=== PATIENT | female | born 1995 | race Caucasian/White ===

== ENCOUNTER 2024-05-15 12:07 | Outpatient (CLI) | payer BC, SELFPAY ==
--- NOTE | 2024-05-15 12:15 | CRLHL7_ITS ---
For Patients: As a result of the Cures Act, medical imaging exams and procedure reports are released immediately into your electronic medical record. You may view this report before your referring provider. If you have questions, please contact your health care provider. OBSTETRICAL ULTRASOUND INDICATION: Unsure dates. LMP: Unsure PREVIOUS ULTRASOUND: No TECHNIQUE: Transvaginal pelvic ultrasound. FINDINGS: CRL: 3.3 cm, 10 weeks 1 day; NIYA 12/10/2024 heart rate: 169 BPM Gestational sac: 3.3 cm Yolk sac: Not visualized Right ovary: Within normal limits; 4.0 x 2.2 x 2.4 cm Left ovary: Not visualized IMPRESSION: 1. Single viable intrauterine measuring 10 weeks 1 day. 2. 1.6-cm subchorionic hemorrhage along the inferior gestational sac. MAGI BAXTER M.D. Body/Diagnostic Radiologist [email or web address] Transcribed: 5:[address]/Dictated by: Magi Baxter MD @ 05/16/2024 4:15:00 PM (Electronically Signed)
== END 2024-05-15 12:08 | disposition home or self-care (01) ==
LOC: US 12:09
PROVIDERS: Visit Provider Physician Assistant
DX: Z34.90 Encounter for supervision of normal pregnancy, unspecified, unspecified trimester (principal); Z34.91 Encounter for supervision of normal pregnancy, unspecified, first trimester; O20.9 Hemorrhage in early pregnancy, unspecified; Z3A.10 10 weeks gestation of pregnancy
CPT/HCPCS: 76817; 84443; 86703; 86706; 86803; 86850; 86900; 86901; 87086; 87340; 87491; 87591

== ENCOUNTER 2024-05-15 13:25 | Outpatient (CLI) | payer BC, SELFPAY ==
[2024-05-15 18:00] LABS: Chlamydia DNA Amplified* NOT DETECTED (No Detected); GC DNA Amplified* NOT DETECTED (No Detected)
== END 2024-05-15 13:26 | disposition home or self-care (01) ==
PROVIDERS: Visit Provider Physician Assistant
DX: Z34.91 Encounter for supervision of normal pregnancy, unspecified, first trimester (principal); Z3A.10 10 weeks gestation of pregnancy
CPT/HCPCS: 84443; 86592; 86703; 86704; 86706; 86762; 86787; 86803; 86850; 86900; 86901; 87086; 87340; 87491; 87591

== ENCOUNTER 2024-07-03 09:19 | Emergency (ER) | payer BC, SELFPAY ==
[2024-07-03 09:32] VITALS: BP 129/86; PULSE 94; RESP 18; TEMP 37.1; O2SAT 100; BMI 46.2
--- NOTE | 2024-07-03 10:08 | ED_ITS ---
HPI - General Adult General Date Seen: 07/03/24 Chief complaint: Allergic Reaction Stated complaint: allergic reaction Time Seen by Provider: 07/03/24 10:07 History of Present Illness HPI narrative: 28-year-old female who is currently 17 weeks , with a history of elevated BMI, PCOS, who presents to the ER today with concern for allergic reaction. Per medical record she had a check in April had about 10 weeks . E.d. see 12/10/2024. She has been doing well with her . No recent vaginal bleeding or cramping or any concerns. She got a new facial cleanser that she started using 3 days ago on Wednesday. It was an organic facial cleanser. Beginning the following day and today she started to have some itchy redness on her face including her forehead, cheeks and anterior neck. The itchiness got a little bit worse yesterday on Wednesday. She stop using the facial cleanser, suspecting she was allergic to it. This morning her face was even more red and itchy. She felt a little bit of shortness of breath so she called the nurse triage line was told to come here to the ER. She did not miss any change in her voice. No chest pain or tightness. No nausea vomiting or abdominal pain no hives other than on her face and neck where she had applied cleanser. She has a history of similar contact dermatitis in the past. She says she did not have any change her voice and she is not sure if she was really short of [place] ath or she was just anxious about the rash but was told to come here to the ER. Related Data Previous Rx's ?Medication ?Instructions ?Recorded vitamins no.148-iron 27 1 cap PO DAILY #90 caps 05/15/24 mg-folate 1 mg-dha 205 mg capsule cetirizine 10 mg tablet 10 mg PO DAILY PRN allergy 07/03/24 symptoms #7 tabs prednisone 20 mg tablet 60 mg (3 x 20 mg) PO DAILY #9 tabs 07/03/24 Allergies Allergy/AdvReac Type Severity Reaction Status Date / Time No Known Drug Allergies Allergy Verified 07/03/24 09:39 PFSH PFSH Family History (Updated 05/15/24 @ 12:09 by Dyana Jacob PA-C) Maternal Grandmother Lymphoma Aunt Breast cancer Paternal Grandfather Heart disease Social History (Updated 05/15/24 @ 13:54 by Dyana Jacob PA-C) Narrative: Occupation: Massage therapist. Marital status: . Jewish/cultural needs: no. Chemical or radiation exposure: no. Pre- tobacco use: no. Pre- alcohol use: no. Current tobacco use: no. Current alcohol use: no. Recreational drug use: no. Dietary restrictions: no. Blood transfusion acceptable in an emergency: yes. PSYCHOSOCIAL HISTORY: History of depression or currently depressed: Denies. Current or past physical, emotional, or sexual mistreatment: Denies. Problems that will make it hard to make it to appointments: No. What is your current living situation?: I presently have a place to live Problems where you live: pests, such as bugs, ants, or mice and no known problems In the past 12 months, utilities in danger of being shut off: no In the past 12 mos, have been you worried that your food would run out before you had money to buy more?: never true In the past 12 mos, the food you bought just didn't last and you didn't have money to buy more?: never true How often does anyone, including family, friends and others, physically hurt you : never How often does anyone, including family, friends and others, insult or talk down to you: rarely How often does anyone, including family, friends and others, threaten you with harm: never How often does anyone, including family, friends and others, scream or curse at you: never Health Related Social Needs: Inadequate housing (Z59.1) and Other personal risk factors, not elsewhere classified (Z91.89) Exam Narrative: Exam Narrative: Constitutional: Appears well-developed and well-nourished. Alert. Conversant. Non toxic. HENT: Head: Atraumatic. Nose: Nose normal. Mouth/Throat: Oral mucosa is clear and moist. no trismus. Pharynx normal. Tonsils symmetric. No tonsillar enlargement, erythema, or exudate. Eyes: Conjunctivae normal. EOM normal. Pupils equal, round, and reactive to light. No scleral icterus. Neck: Normal range of motion. Neck supple. No tracheal deviation present. Cardiovascular: Normal rate, regular rhythm. No gallop. No friction rub. No murmur heard. Symmetric radial artery pulses Pulmonary/Chest: Effort normal. No stridor. No respiratory distress. No wheezes. No rales. No rhonchi Musculoskeletal: RUE: Normal range of motion. No tenderness. No deformity LUE: Normal range of motion. No tenderness. No deformity RLE: Normal range of motion. No edema. No tenderness. No deformity LLE: Normal range of motion. No edema. No tenderness. No deformity Lymph: No cervical adenopathy. Neurological: Alert and oriented to person, place, and time. Normal strength. CN II-VII intact. No sensory deficit. GCS eye subscore is 4. GCS verbal subscore is 5. GCS motor subscore is 6. Normal coordination Skin: She has an erythematous pruritic rash affecting her face including diffusely on her forehead, cheeks, lower eyelids and a more scattered erythematous pruritic appearing rash on her anterior neck and anterior chest just down to the clavicles. She has a couple of small urticarial lesions on the back of her neck behind her left ear. None behind right ear. No other hives or rash. No pallor. Normal capillary refill. Psychiatric: Normal mood. Normal affect. Const: Vital Signs, click to edit/add: Vital Signs - 24 hr 07/03/24 09:32 Temperature 98.7 F Pulse Rate [Pulse Oximeter] 94 Respiratory Rate 18 Blood Pressure [Ri ght Upper Arm] 129/86 Pulse Oximetry 100 Oxygen Delivery Me thod Room Air Course Vital Signs Vital signs: Initial Vital Signs Temperature 98.7 F 07/03/24 09:32 Temperature Source Temporal Artery Scan 07/03/24 09:32 Pulse Rate 94 07/03/24 09:32 Respiratory Rate 18 07/03/24 09:32 Blood Pressure 129/86 07/03/24 09:32 Blood Pressure Mean 100 07/03/24 09:32 Blood Pressure Position Sitting 07/03/24 09:32 Pulse Oximetry 100 07/03/24 09:32 Oxygen Delivery Method Room Air 07/03/24 09:32 Vital Signs Temperature 98.7 F 07/03/24 09:32 Pulse Rate 94 07/03/24 09:32 Respiratory Rate 18 07/03/24 09:32 Blood Pressure 129/86 07/03/24 09:32 Pulse Oximetry 100 07/03/24 09:32 Oxygen Delivery Method Room Air 07/03/24 09:32 Temperature 98.7 F 07/03/24 09:32 Pulse Rate 94 07/03/24 09:32 Respiratory Rate 18 07/03/24 09:32 Blood Pressure 129/86 07/03/24 09:32 Pulse Oximetry 100 07/03/24 09:32 Oxygen Delivery Method Room Air 07/03/24 09:32 Medications Administered Medications: Discontinued Medications Generic Name Dose Route Start Last Admin Trade Name Girish PRN Reason Stop Dose Admin Cetirizine HCl 10 mg 07/04/24 09:00 07/03/24 10:34 Cetirizine Hcl 10 Mg Tablet PO 10 mg DAILY JORDYN Administration Prednisone 60 mg 07/03/24 10:26 07/03/24 10:34 Prednisone 20 Mg Tablet PO 07/03/24 10:27 60 mg ONCE ONE Administration Medical Decision Making MDM Narrative Medical decision making narrative: This patient presents for evaluation of a red itchy rash affecting her face and anterior neck. Signs and symptoms are consistent with allergic reaction, likely a contact dermatitis to her new facial cleanser. There was some concern based on her conversation with the phone triage nurse that she may be having some shortness of breath but at this point on my exam she has no signs of airway involvement, bronchospasm. She is not having any GI symptoms, hypotension, or other sign of anaphylaxis. Patient was treated here with medications as noted above.. Will send home with steroids, antihistamines. Potential for progression reaction was discussed. At this point epinephrine is not indicated and would be relatively contraindicated by her . However if symptoms progress, epi would certainly be needed. Potential for anaphylacticc symptoms were discussed with patient and they were instructed to inject epi-pen and call 911 should these symptoms occur. Given the stability of her rash being present for the past couple of days lack of serious systemic symptoms, lack of respiratory difficulty and no oral or pharyngeal swelling, would not admit at this time for anaphylaxis. There is no signs of anaphylactic shock. Discharge Plan Discharge Clinical Impression: Contact dermatitis Patient Disposition: Home, Self-Care Condition: Stable Instructions: Contact Dermatitis (DC) Additional Instructions: As we discussed, use prednisone once daily for the next 3 days and cetirizine once daily for the next 3-5 days as needed. If you are having itchiness uncontrolled by cetirizine, you can add Benadryl 25 mg every 6 hours as needed Return to the ER immediately if you develop worsening trouble breathing, change in your voice, P throat swelling, trouble swallowing, or if you have any worsening rash or other concerns. Prescriptions: New prednisone 20 mg tablet 60 mg PO DAILY Qty: 9 0RF cetirizine 10 mg tablet 10 mg PO DAILY PRN (Reason: allergy symptoms) Qty: 7 0RF No Action [id number] 6-dha 27 mg iron-1 mg -205 mg capsule 1 cap PO DAILY Qty: 90 3RF Follow Up/Referrals: Provider,Not a Local [Primary Care Provider] - Stand Alone Forms: [facility] Info Instructions
[2024-07-03] MEDS: predniSONE 20 MG TABLET 60 MG PO (10:34)
[2024-07-03] MEDS: CETIRIZINE HCL 10 MG TABLET PO (10:34)
== END 2024-07-03 10:48 | disposition home or self-care (01) ==
LOC: ED 10:41
PROVIDERS: Emergency Provider Emergency Medicine
DX: L23.9 Allergic contact dermatitis, unspecified cause (principal); Z3A.17 17 weeks gestation of pregnancy
CPT/HCPCS: 99282; 99283; A9270; J7512

== ENCOUNTER 2024-07-12 08:22 | Outpatient (CLI) | payer BC, SELFPAY | END 2024-07-12 08:23 | disposition home or self-care (01) | LOC: US 08:26 | PROVIDERS: Visit Provider Advanced Practice Midwife | DX: Z34.92 Encounter for supervision of normal pregnancy, unspecified, second trimester (principal); Z3A.18 18 weeks gestation of pregnancy | CPT/HCPCS: 76811 ==

== ENCOUNTER 2024-12-01 18:08 | Outpatient (CLI) | payer BC, SELFPAY ==
[2024-12-01 18:42] LABS: Clue Cells No Clue Cells Seen (None Seen); Trichomonas No Trichomonas Seen (None Seen); Yeast No Yeast Seen (None Seen)
[2024-12-01 18:46] LABS: Amnisure Rom* Negative
[2024-12-01 19:32] LABS: Appearance Urine Clear (Clear); Bilirubin Urine Negative (Negative); Blood Urine Negative (Negative); Color Urine Yellow (Yellow); Glucose Urine Negative (Negative); Ketones Urine 2+ (Negative); Leukocyte Esterase Urine Negative (Negative); Nitrite Urine Negative (Negative); Protein Urine Negative (Negative); Urobilinogen Urine 0.2 (0.2-1.0); pH Urine 6.5 (5.0-8.5)
[2024-12-01 21:29] VITALS: PULSE 140; O2SAT 81
[2024-12-01 21:30] VITALS: BP 118/74; PULSE 107; PULSE 117; O2SAT 97
--- NOTE | 2024-12-01 21:59 | PC.OBNST ---
NST Note NST Note Start: 12/01/24 17:11 Freq: ONCE Status: Active Protocol: Document 12/01/24 21:56 OANH (Rec: 12/01/24 21:59 OANH Desktop) NST Note 2 Para (# of births) 1 EDC 12/10/24 Gestational Age In Weeks & Days 38 Weeks & 5 Days Patient Presented with Complaint(s) of Leaking fluid,Decreased movement,Other Other Complaints trauma- fell on her hands and knees, hit abdomen Reactive Yes Appropriate for Gestational Age Yes ADONIS Amaya RN Date 12/01/24 Reactive Yes Appropriate for Gestational Age Yes ADONIS Moise Date 12/01/24 OB NST charge Yes Complete NST Note via Write Note Yes The provider's electronic signature indicates the NST is reactive/appropriate for gestational age. *Note to provider: If an addendum is required, open the patient's chart and click on the note under the Nurse/Allied Health tab.
== END 2024-12-01 21:50 | disposition home or self-care (01) ==
LOC: OB OUT 18:09 → OB 18:25
PROVIDERS: PCP Family Medicine; Visit Provider Family Medicine
DX: O47.1 False labor at or after 37 completed weeks of gestation (principal); O36.8130 Decreased fetal movements, third trimester, not applicable or unspecified; Z3A.38 38 weeks gestation of pregnancy
CPT/HCPCS: 36415; 59025; 81003; 84112; 85461; 87210; G0463; J2791

== ENCOUNTER 2024-12-05 17:02 | Inpatient (IN) | payer BC, SELFPAY ==
[2024-12-05 17:32] VITALS: BP 131/82; PULSE 108; TEMP 36.8
[2024-12-05 17:49] VITALS: BMI 50.4
--- NOTE | 2024-12-05 18:20 | PM.OBHPLI ---
OB - H&P: HPI Labor/Induction History of Present Illness Time Seen by Provider: 18:20 Date Seen: 12/05/24 Chief Complaint: The patient is a 28 year old 2 para 1 at 39.2 weeks gestation by ultrasound dating who presents for IOL for obesity at 39 weeks. Chief complaint: maternity : 2 Para: 1 Indications for induction: other (maternal obesity) Narrative: Ramone Muñoz is a 28 year old female 2 para 1 at 39.2 weeks gestation by ultrasound dating who presents for IOL for obesity at 39 weeks. Patient had fall on Wednesday and was monitored x 4 hours. She has large bruises on her knees, especially left. She received Rhogam during that triage. Patient is Rh Negative, GBS + Has a 21 month old daughter at home, born by . Specific Issues/Plans Partner: Josias H&P: # Obesity, BMI 46.0 Hemoglobin A1c: 5.4% Referral to corn chip maker: Patient declined Referral to anesthesiology: refer sent 07/24/2024 MFM consult and level 2 ultrasound:see recommendations below, limited views Weekly BPP and/or NST starting at 32 weeks Growth ultrasound between 32 and 36 weeks OB Consult: refer sent 07/24/2024 Follow-up is recommended with MFM at [place] in 3-5 weeks to reassess anatomy that was suboptimally seen today.? MFM recommendations for surveillance for BMI: growth US at 28 and 34 weeks gestation and initiation of weekly surveillance at 34 weeks gestation for BMI. # abnormal Pap 2020: LGSIL. No colposcopy Next Pap 08/26/2022:NIL # Rh negative Rhogam: Rhogam given on Friday 12/01 due to fall # varicella nonimmune Vaccinate #Hep B non-immune Imagin05/15/24: 1.Single viable intrauterine measuring 10 weeks 1 day. 2.1.6-cm subchorionic hemorrhage along the inferior gestational sac. 07/12 Lev 2 US with normal findings, but some suboptimal views. Follow up scheduled * Vaccinations: COVID: Declined Flu: 05/15/24 Last pap: 08/26/22: NIL History of Present Dating criteria: based on 1st trimester US only care: good care Ultrasounds: normal 1st trimester US and normal mid trimester US (normal but limited due to body habitus ) Medical complications: none and other Narrative: obesity Labs Blood type: B (-) negative Rubella: nonimmune RPR/VDLR: nonreactive GBS status: positive HBsAG: negative Review of Systems Status of ROS: Reports: 10 or more systems reviewed and unremarkable except as noted in History and below Meds Home Medications and Allergies Home Medications ?Medication ?Instructions ?Recorded ?Confirmed ?Type vitamins no.148-iron 27 1 cap PO DAILY #90 caps 05/15/24 07/24/24 Rx mg-folate 1 mg-dha 205 mg capsule cetirizine 10 mg tablet 10 mg PO DAILY PRN allergy 07/03/24 07/24/24 Rx symptoms #7 tabs famotidine 20 mg tablet (Pepcid) 20 mg PO QDAY 07/24/24 07/24/24 History Allergies Allergy/AdvReac Type Severity Reaction Status Date / Time No Known Drug Allergies Allergy Verified 07/24/24 08:32 OB - H&P: Exam Physical Exam: Vital signs: Temp Pulse BP 98.2 F 108 H 131/82 12/05/24 17:32 12/05/24 17:32 12/05/24 17:32 Constitutional: Constitutional: no acute distress Routine HEENT Exam: Head: Present atraumatic and normal inspection Routine Neck Exam: Neck: Present full ROM Routine Respiratory Exam: Respiratory: Present CTA bilaterally Routine Cardiovascular Exam: Cardiovascular: RRR, S1 and S2 Routine Exam: Perineum Description: Normal Detailed Labor and Delivery Exam: Patient Gravid: Yes Dilation (cm): 2 Effacement (%): 50 Cervix position: posterior Consistency: medium Cervical ripeness score: 3 Contraction frequency (min): 6 Tachysystole: No Contraction intensity: Mild Fetus (Single): Station: -3 Amniotic Membrane Status: intact Heart Rate Baseline: 135 Monitor Accelerations: Present Monitor Decelerations: Variable Shelter Variability: Moderate (6-25) Routine Extremities Exam: Extremities: Absent calf tenderness Comments: has large bruises on knees bilaterally, left >right Routine Back/Spine/Pelvis Exam: Back/Spine: full ROM Routine Skin Exam: Present ecchymosis (large ecchymoses on left knee) Routine Neurological Exam: Present alert and oriented X3 Routine Psychiatric Exam: Present normal affect OB - Problem Based A/P Additional Plan (1) : Status: Acute (2) Obesity affecting : Status: Acute (3) Morbid obesity with BMI of 45.0-49.9, adult: Status: Acute Plan - IOL For obesity. Dr Cook will plan to deliver Delivery/Labor/Induction Plan Plan: induction Induction method: Intracervical balloon catheter (Cook catheter placed with 60 cc of saline in internal and external balloons. Patient tolerated well. )
[2024-12-05 20:09] VITALS: RESP 18; TEMP 37
[2024-12-05 21:17] LABS: Basophils Percent Auto 0.2 % (0.0-3.0); Eosinophils Percent Auto 0.4 % (0.0-7.0); Hematocrit 39.7 % (33.0-51.0); Hemoglobin* 13.4 gm/dL (12.0-16.0); Immature Granulocytes Pct Auto 1.6 %; Lymphocytes Percent Auto 18.3 % (20-44); Mean Corpuscular HGB Conc 34 gm/dL (32-36); Mean Corpuscular Hemoglobin 29 pg (26-34); Mean Corpuscular Volume 86 fL (80-100); Monocytes Percent Auto 5.4 % (0.0-11.0); Neutrophils Percent Auto 74.1 % (42.0-72.0); Platelet Count* 235 K/uL (140-440); RDW Coefficient of Variation % 13.2 % (11.5-15.5); Red Blood Count 4.61 m/uL (4.00-5.20); White Blood Count* 14.75 K/uL (4.50-11.00)
[2024-12-05] MEDS: hydrOXYzine pamoate 25 MG CAPSULE 100 MG PO (21:17)
[2024-12-05] MEDS: MORPHINE 10 MG/ML inj IM (21:17)
[2024-12-05 21:18] LABS: Slide Review Reflex No
[2024-12-05 21:23] VITALS: BP 142/72; PULSE 92; RESP 16; TEMP 36.6
[2024-12-05 21:34] VITALS: BP 140/75; PULSE 97
[2024-12-05] MEDS: AMPICILLIN 2 GM in 0.9 % SODIUM CHLORIDE Mini-bag 100 ML IVPB (23:52)
[2024-12-05] MEDS: LACTATED RINGERS 1000 ML 1,000 ML 124 ML IV (23:52)
[2024-12-05] MEDS: OXYTOCIN 30 unit/500 ML in NS 30 UNIT/500 ML BAG IVPB (23:53)
[2024-12-05 23:56] VITALS: BP 122/80; PULSE 92; RESP 16; TEMP 36.7
[2024-12-06] VITALS (62 sets, daily range): BP systolic 90–142; BP diastolic 47–88; PULSE 76–118; RESP 16–18; TEMP 36.2–36.9; O2SAT 89–100
[2024-12-06] MEDS: AMPICILLIN 1 GM in 0.9 % SODIUM CHLORIDE Mini-bag 100 ML IVPB ×4 (04:07→16:41)
--- NOTE | 2024-12-06 07:30 | P.OBPN_ITS ---
Subjective Date Seen: 12/06/24 Narrative: Ramone is a at 39+3 here for IOL for maternal obesity. She had a cook catheter placed overnight which fell out around 0430 at which time cervix was 4.5/70/-3. Pitocin and abx for + GBS started around midnight. Patient still reports mild and irregular contractions. She underwent AROM with copious clear fluid at 0723. Objective Vital Signs: Last Vital Signs Temp 98.2 F 12/06/24 06:45 Pulse 100 12/06/24 06:47 Resp 18 12/06/24 06:45 BP 135/74 12/06/24 06:47 Pelvic Exam Dilation (cm): 5 Effacement (%): 80 Station: -2 Contractions Monitor mode: External Contraction Frequency: 2-5 Contraction pattern: Irregular Contraction intensity: Mild Assessment Assessment: induction ongoing Station: -2 Amniotic Membrane Status: AROM Status: Category l Heart Rate Baseline: 145 Rn Provider Relations Variability: Moderate (6-25) Monitor Accelerations: Present Monitor Decelerations: Variable Plan Plan: Continue pitocin per protocol. Pain analgesia per patient request, she is considering nitrous and avoiding epidural if possible. Anticipate .
[2024-12-06] MEDS: LACTATED RINGERS 1000 ML 1,000 ML 117 ML IV (09:22)
[2024-12-06] MEDS: LIDOCAINE 2% (PF) 5 ML VIAL EPIDURAL (13:43)
[2024-12-06] MEDS: ROPIVACAINE 0.2% 100 ml 100 ML 12 MG EPIDURAL (13:44)
[2024-12-06] MEDS: fentaNYL 250 MCG/5 ML inj 100 MCG EPIDURAL (13:45)
--- NOTE | 2024-12-06 14:03 | PM.ANBPRC ---
[facility] Medical History (Updated 07/24/24 @ 08:12 by Brittny Fox CNM) PCOS (polycystic ovarian syndrome) ?E28.2 - Polycystic ovarian syndrome (ICD-10) Morbid obesity with BMI of 45.0-49.9, adult ?E66.01 - Morbid (severe) obesity due to excess calories (ICD-10) ?Z68.42 - Body mass index [BMI] 45.0-49.9, adult (ICD-10) Family History (Updated 05/15/24 @ 12:09 by Dyana Jacob PA-C) Maternal Grandmother Lymphoma Aunt Breast cancer Paternal Grandfather Heart disease Social History (Updated 05/15/24 @ 13:54 by Dyana Jacob PA-C) Narrative: Occupation: Massage therapist. Marital status: . Sikh/cultural needs: no. Chemical or radiation exposure: no. Pre- tobacco use: no. Pre- alcohol use: no. Current tobacco use: no. Current alcohol use: no. Recreational drug use: no. Dietary restrictions: no. Blood transfusion acceptable in an emergency: yes. PSYCHOSOCIAL HISTORY: History of depression or currently depressed: Denies. Current or past physical, emotional, or sexual mistreatment: Denies. Problems that will make it hard to make it to appointments: No. What is your current living situation?: I presently have a place to live Problems where you live: no known problems In the past 12 months, utilities in danger of being shut off: no In past 12 months, lack of transportation kept you from medical appts, meetings, work, or getting things needed for daily living: no In the past 12 mos, have been you worried that your food would run out before you had money to buy more?: never true In the past 12 mos, the food you bought just didn't last and you didn't have money to buy more?: never true Smoking Status: Former smoker Do you use any of these nicotine containing products: None How often do you have a drink containing alcohol: never How often do you have six or more drinks on one occasion: Never AUDIT-C Alcohol total score: 0 Non-prescribed substance use: denies use How often does anyone, including family, friends and others, physically hurt you: never How often does anyone, including family, friends and others, insult or talk down to you: never How often does anyone, including family, friends and others, threaten you with harm: never How often does anyone, including family, friends and others, scream or curse at you: never service: No Meds Home Medications and Allergies Home Medications ?Medication ?Instructions ?Recorded ?Confirmed ?Type vitamins no.148-iron 27 1 cap PO DAILY #90 caps 05/15/24 12/05/24 Rx mg-folate 1 mg-dha 205 mg capsule cetirizine 10 mg tablet 10 mg PO DAILY PRN allergy 07/03/24 12/05/24 Rx symptoms #7 tabs famotidine 20 mg tablet (Pepcid) 20 mg PO QDAY 07/24/24 12/05/24 History Allergies Allergy/AdvReac Type Severity Reaction Status Date / Time No Known Drug Allergies Allergy Verified 12/05/24 23:00 Results Labs Labs: Laboratory Results - last 24 hr 12/05/24 21:06 WBC 14.75 H RBC 4.61 Hgb 13.4 Hct 39.7 MCV 86 MCH 29 MCHC 34 RDW Coeff of Cande 13.2 Plt Count 235 Neut % (Auto) 74.1 H Lymph % (Auto) 18.3 L [place] % (Auto) 5.4 Eos % (Auto) 0.4 Baso % (Auto) 0.2 Neut # (Auto) 10.90 H Lymph # (Auto) 2.70 [place] # (Auto) 0.80 Eos # (Auto) 0.10 Baso # (Auto) 0.00 Abs Immat Gran (auto) 0.20 Imm/Tot Granulo (auto) 1.6 Blood Type B Negative Antibody Screen POSITIVE Vital Signs Vital Signs: Last Vital Signs Temp 97.6 F 12/06/24 13:15 Pulse 107 H 12/06/24 13:56 Resp 18 12/06/24 06:45 BP 118/59 L 12/06/24 13:56 Pulse Ox 99 12/06/24 14:00 Weight: 159.574 kg Height: 177.8 cm Anesthesia Procedures Epidural Insertion Patient Location: OB Start Time: 13:00 Stop Time: 14:00 Start Date: 12/06/24 Stop Date: 12/06/24 Reason for Block: primary anesthetic Patient Position: sitting Preanesthetic Checklist: IV checked, risks and benefits discussed, monitors and equipment checked and anesthesia consent Prep: chlorhexidine gluconate Monitoring: blood pressure monitoring, continuous pulse oximetry and heart rate Approach: midline Vertebral Space: lumbar (1-5) Epidural Technique: SHIRA saline Needle Type: Tuohy needle Injection Technique: continuous catheter Needle gauge: 17 Needle Length (cm): 10 cm Needle Insertion Depth (cm): 10 Catheter Gauge: 19 Catheter Type: multi-orifice Catheter at skin depth (cm): 13 Test Dose Result: negative and lidocaine 1.5% with epinephrine 1 to 200,000
[2024-12-06] MEDS: LACTATED RINGERS 1000 ML 1,000 ML 912 ML IV (14:27)
[2024-12-06] MEDS: CALCIUM CARBONATE 500 MG CHEW PO (17:20)
--- NOTE | 2024-12-06 17:51 | W.PM.VAGDEL1 ---
Procedure Delivery date: 12/06/24 Procedure Done: Global Intrapartal Events: Labor Induction Delivery augmentation: rupture of membranes Delivery monitor: external FHT and external uterine Route of delivery: Episiotomy description: None Laceration description: None Estimated blood loss (mL): 100 Anesthesia type: Epidural Disposition: floor Narrative: The patient is a 28 year-old admitted on 12/05/2024 at 39 Weeks, 2 Days gestation for IOL for maternal obesity.? Cervical exam on admission was 2 cm/50 % effaced/-3 station with membranes intact in vertex presentation.? Contractions were irregular.? heart rate demonstrated baseline 140 bpm with moderate variability, + accelerations, - decelerations; a category 1 tracing.?Patient had a [employer] catheter placed, which fell out at 0430, pitocin started at midnight on 12/06/24 and was continued per protocol. AROM occurred at 0724 with clear fluid. ? Labor Analgesia:? epidural ? Pitocin:? yes ? Labor onset:? 1224 ? Complete:? 1717 ? Pushing:? 1730 ? heart tones during second stage were category 1. ? At 1732 a viable male delivered in vertex OT presentation over intact perineum via spontaneous vaginal delivery.? was placed on maternal abdomen.? Cord was clamped and cut after a 30-60 second delay.? Nose and mouth were bulb suctioned.? Infant weight pending.? 9 at 1 minute and 9 at 5 minutes.? Shoulder dystocia: no.? Nuchal cord: no. ? Placenta delivered spontaneously and complete at 1736 with a 3 vessel cord. ? Mother and infant were stable after delivery. ? Lacerations:? n/a. ? Blood loss: 100 mL. Blood loss measurement type: QBL ? Sponge and needles counts are correct. Gender: Male presentation: vertex Placental Delivery Description: Spontaneous Cord Description: 3 Vessels
[2024-12-06] MEDS: IBUPROFEN 600 MG TABLET PO (20:03)
[2024-12-06] MEDS: ACETAMINOPHEN 500 MG TABLET 1000 MG PO (21:26)
[2024-12-07] VITALS (7 sets, daily range): BP systolic 115–143; BP diastolic 76–88; PULSE 85–108; RESP 16–17; TEMP 36.4–36.5; O2SAT 97–98
[2024-12-07 00:59] LABS: Hematocrit 37.9 % (33.0-51.0); Hemoglobin* 12.6 gm/dL (12.0-16.0); Mean Corpuscular HGB Conc 33 gm/dL (32-36); Mean Corpuscular Hemoglobin 29 pg (26-34); Mean Corpuscular Volume 87 fL (80-100); Platelet Count* 195 K/uL (140-440); Red Blood Count 4.34 m/uL (4.00-5.20)
[2024-12-07 01:06] LABS: Slide Review Reflex No
[2024-12-07 01:15] LABS: Alanine Aminotransferase* 17 U/L (4-35); Aspartate Amino Transferase* 22 U/L (12-35); Blood Urea Nitrogen* 13 mg/dL (5-24); Creatinine* 0.6 mg/dL (0.5-1.5); Est. Creatinine Clearance* 149.61; Estimated Glomerular Filt Rate 125 ml/min
[2024-12-07] MEDS: IBUPROFEN 600 MG TABLET PO ×3 (03:47→15:17)
--- NOTE | 2024-12-07 08:08 | PM.OBPNVD1 ---
OB - PN:Subj Subjective Time Seen by Provider: 07:45 Date Seen: 12/07/24 Interval history: pt seen in routine rounds. Pt had 3 BP's elevated overnight (142/67, 140/66, 143/82). Preeclamptic labs negative. Most recent 137/88 at 0410am. Pt feeling well. no headaches. cramping with . +voiding. Ambulating. Reports lochia normal. OB - PN: Obj Exam Physical Exam: Vital signs: Temp Pulse Resp BP Pulse Ox O2 Del Method 97.5 F L 87 16 137/88 98 Room Air 12/07/24 04:10 12/07/24 04:10 12/07/24 04:10 12/07/24 04:10 12/07/24 04:10 12/07/24 04:10 Constitutional: Constitutional: no acute distress Routine HEENT Exam: Head: Present normal inspection Eye: Present normal appearance ENT: Present mucous membranes moist Routine Abdominal Exam: Fundus: Present firm (at umbilicus) OB - PN: Obj Data Labs Labs: Laboratory Results - last 24 hr 12/06/24 12/07/24 12/07/24 00:57 00:57 06:00 WBC 15.00 H RBC 4.34 Hgb 12.6 12.0 Hct 37.9 MCV 87 MCH 29 MCHC 33 Plt Count 195 BUN 13 Creatinine 0.6 Estimated Creat Clear 149.61 Estimated GFR 125 AST 22 ALT 17 Screen Negative OB - PN: A/P Delivery Assessment and Plan (1) : Problem details: s/p (induced for BMI>50) 12/06/24 at 1732, +GBS with adequate treatment. Rhnegative. Status: Resolved (2) Obesity affecting : Status: Resolved (3) Morbid obesity with BMI of 45.0-49.9, adult: Status: Acute Plan Comments: Elevated BP's: first one before delivery at 1657, 2nd after delivery at 1812. Then okay until 0022 elevated at 143/82, preeclamptic labs normal. BP's since <140/90 but just below this. Discussed with pt if BP at or above 140/90 again, rec start BP medication and will need to stay for minimum until tomorrow. discussed need at least 12-24 hours good BP control prior to d/c. Discussed risks of high BP . pt and understanding of plan. Discussed with RN. She will notify me if BP at or above 140/90 and update me later today otherwise if not and we can reconsider possible d/c later today or tomorrow based on BP
[2024-12-07] MEDS: DOCUSATE SODIUM 100 MG CAPSULE PO (09:01)
--- NOTE | 2024-12-07 11:05 | PM.ANPOST ---
Post Anesthesia Note Post Anesthesia Note Patient seen: Inpatient Respiratory Status: adequate Cardiovascular Status: adequate Mental Status: baseline Pain: adequate Temp: baseline Anesthetic awareness: N/A Complications: none Follow care: none
[2024-12-07] MEDS: ACETAMINOPHEN 500 MG TABLET 1000 MG PO ×2 (11:32→17:59)
[2024-12-07 14:08] LABS: Rapid Plasma Reagin (RPR) Non Reactive (Non Reactive)
[2024-12-07] MEDS: LANOLIN CREAM 1 APPLIC TOPICAL (15:16)
--- NOTE | 2024-12-07 18:20 | P.DS_ITS ---
DS: Providers Provider Time Seen by Provider: 07:45 Date Seen: 12/07/24 Date of admission: 12/05/24 17:02 Primary care physician: Jennifer Cook MD Admitting Clinician: Abby Monson MD Attending Physician on discharge: Ilana Rahman DO Date of Discharge: 12/07/24 DS: Diagnosis Discharge Diagnosis (1) Vaginal delivery: Status: Acute (2) hypertension: Status: Acute Problem details: BP >140/90 x 2 , preeclamptic labs normal. Below this for last 12+ hours, d/c home without bp meds. Pt to keep home bp log and bring to follow up with baby Exam Const: Vital Signs, click to edit/add: Vital Signs - 24 hr 12/06/24 18:27 12/06/24 18:42 12/06/24 18:57 Temperature Pulse Rate 101 H 99 Pulse Rate [Pulse Oximeter] Respiratory Rate Blood Pressure 126/60 128/60 121/60 Blood Pressure [Le ft Arm] Pulse Oximetry Oxygen Delivery Me thod 12/06/24 18:57 12/06/24 19:12 12/06/24 19:13 Temperature 98.2 F Pulse Rate 103 H Pulse Rate [Pulse Oximeter] Respiratory Rate 16 Blood Pressure 124/47 L Blood Pressure [Le ft Arm] Pulse Oximetry 99 Oxygen Delivery Me thod 12/06/24 19:13 12/06/24 19:27 12/06/24 19:27 Temperature Pulse Rate 108 H 112 H Pulse Rate [Pulse Oximeter] Respiratory Rate Blood Pressure 123/61 Blood Pressure [Le ft Arm] Pulse Oximetry Oxygen Delivery Me thod 12/06/24 19:27 12/06/24 21:22 12/07/24 00:22 Temperature 97.9 F 97.6 F Pulse Rate Pulse Rate [Pulse Oximeter] 118 H 108 H Respiratory Rate 16 16 16 Blood Pressure Blood Pressure [Le ft Arm] 114/76 143/82 H Pulse Oximetry 99 99 Oxygen Delivery Me thod Room Air [place] Nasal Ca nnula 12/07/24 00:33 12/07/24 04:10 12/07/24 08:55 Temperature 97.5 F L Pulse Rate Pulse Rate [Pulse Oximeter] 87 85 Respiratory Rate 16 16 Blood Pressure Blood Pressure [Le ft Arm] 138/78 137/88 117/81 Pulse Oximetry 98 Oxygen Delivery Me thod Room Air Room Air 12/07/24 13:19 12/07/24 15:20 12/07/24 17:56 Temperature 97.7 F Pulse Rate Pulse Rate [Pulse Oximeter] 85 85 Respiratory Rate 17 Blood Pressure Blood Pressure [Le ft Arm] 128/83 115/76 125/86 Pulse Oximetry 97 Oxygen Delivery Me thod Room Air Documenting provider has reviewed patient's vital signs: yes Common normals: no apparent distress and healthy appearing General appearance: cooperative and comfortable : Uterus: U/U (firm) OB - DS: Summary Hospital Course Hospital Course: The patient is a 28 year old G 2 P 1 at 39 3/7 weeks gestation that was admitted to the Center on 12/05/24 for induction due to BMI>50. She had an uncomplicated vaginal delivery. She delivered a viable male infant. She is breast feeding. patient had two BP's in hypertension range at 140/66 and 143/82. Preeclamptic labs wnl. BP's all today < 140/90 and no sxs. The patient has done well throughout today and desires discharge. Peripartum Data delivery method: Vaginal Laceration description: None Chestnut Gender: Male Time Spent with Patient Time attestation: Total time spent providing and/or coordinating discharge services: Discharge Plan Discharge Disposition: Home, Self-Care Date of Admission: 12/05/24 17:02 Consulting Providers: Jennifer Cook Primary Care Provider: Jennifer Cook Condition: Stable Anticipated Discharge Date/Time: 12/07/24 18:32 Discharge Medications: New docusate sodium 100 mg Capsule 100 mg PO DAILY Qty: 60 0RF ibuprofen 600 mg Tablet 600 mg PO Q6H PRNQty: 60 0RF cholecalciferol (vitamin D3) [Vitamin D3] 50 mcg (2,000 unit) capsule 100 mcg PO DAILY Qty: 180 3RF Continued [id number] 6-dha 27 mg iron-1 mg -205 mg capsule 1 cap PO DAILY Qty: 90 3RF famotidine [Pepcid] 20 mg tablet 20 mg PO QDAY cetirizine 10 mg tablet 10 mg PO DAILY PRN (Reason: allergy symptoms) Qty: 7 0RF Discharge Orders: Discharge Order (Routine); Ordered 12/07/24 Ordered By: Ilana A Stortz Patient Education: OB Vaginal/Breast Feeding Additional Instructions: 1. Check blood pressure 1-2 times a day after sitting for at least 15min. Keep log and bring to appointment. Call if >140/90 or headache that does not resolve with medication 2. Start vitamin D3 4000IU daily for --goes in breastmilk to . Activity Level: Activity as Tolerated Discharge Diet: Regular Follow Up Appointments: Jennifer Cook MD [Primary Care Provider] - (check in with Dr Cook at apt. Make 6 week visit) Forms: [employer] Info Instructions
== END 2024-12-07 19:15 | disposition home or self-care (01) | DRG 560 ==
PROVIDERS: Family Medicine; Admitting Provider Family Medicine; PCP Family Medicine; Visit Provider Family Medicine
DX: O99.214 Obesity complicating childbirth (principal); E66.01 Morbid (severe) obesity due to excess calories; O99.824 Streptococcus B carrier state complicating childbirth; O16.5 Unspecified maternal hypertension, complicating the puerperium; O26.893 Other specified pregnancy related conditions, third trimester; Z67.21 Type B blood, Rh negative; Z37.0 Single live birth; Z3A.39 39 weeks gestation of pregnancy
CPT/HCPCS: 01967; 36415; 59200; 76815; 82565; 84450; 84460; 84520; 85018; 85025; 85027; 85461; 86592; 86850; 86870; 86880; 86900; 86901; A9270; C1726; J0290; J2270; J2791; J2795; J3010; J7120

== ENCOUNTER 2024-12-14 13:23 | Outpatient (CLI) | payer BC, SELFPAY ==
--- NOTE | 2024-12-14 14:43 | P.LACCB_ITS ---
Consult Note - Mom Date of Visit Date of visit: 12/14/24 Reason for consultation: Assistance Needed and Weight Concern (izabela was at a 13% wt loss at primary care office today ) Visit Code: Visit Patient's Information Phone number: [phone] : 2 Para: 2 Allergies No Known Drug Allergies Allergy (Verified 12/05/24 23:00) Mother's medical history: PCOS and Other (gest HTN; mom has not checked her BP in the last 2 days-she is asymptomatic but I did ask her to begin checking it at home again twice daily until she has her 2 week check up) Mother's Medical History: Medical History (Updated 12/09/24 @ 00:01 by Background Daemon) Vaginal delivery ?O80 - Encounter for full-term uncomplicated delivery (ICD-10) Obesity affecting ?O99.210 - Obesity complicating , unspecified trimester (ICD-10) ?Z34.90 - Encounter for supervision of normal , unspecified, unspecified trimester (ICD-10) PCOS (polycystic ovarian syndrome) ?E28.2 - Polycystic ovarian syndrome (ICD-10) Morbid obesity with BMI of 45.0-49.9, adult ?E66.01 - Morbid (severe) obesity due to excess calories (ICD-10) ?Z68.42 - Body mass index [BMI] 45.0-49.9, adult (ICD-10) Work Plans: return at 6 weeks, 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) Delivery Information Delivery type: Vaginal Gestational Age: 39+3 Gestational Weight For Age: AGA Weight: 3.21 kg Discharge Weight: 3.106 kg Percentage weight loss: 3.3 Baby's Information Baby's Age at Visit: 8 days Baby's Provider or Clinic: [facility] Past Experience Past Experience: Yes (BF/pumped x10.5 months with first) Current Frequency of Day Feedings: every 1.5-3 hours Frequency of Night Feedings: mostly every 2-3 hours Both Breasts: Yes (offered, sometimes just nurses one side) Suck: strong, comfortable Latch: mom thinks it's ok; not painful Length of Time: 7-10 minutes, gets sleepy/relaxed Goals: 1 year Pumping Pumping: Yes Quantity Pumped: 1-2 oz after first morning feeding Supplementing EBM Supplement: No Formula Supplement: No Baby Elimination Number of Wet Diapers a Day: ea feeding Number of BM a Day: 6 or more/day; yellow in color Breast/Nipple Condition Breast Information: Breasts are symmetrical with rounded lower quadrants, intramammary distance is less than 1.5 inches. No erythema. Nipples are supple, everted prior to feeding. Breast Shape: Pendulous and Pliable Engorgement: No Maternal Nipple Condition - Left: Common Nipple Maternal Nipple Condition - Right: Common Nipple Sore Nipples: Yes (very mild, just at beginning of latch) Baby Assessment Skin: Normal and Yellow (face only) Tongue/frenulum: Normal/elastic Palate: Average Lips: Relaxed and Symmetrical Jaw Alignment: Symmetrical Mucosa: [place], moist Onsite Observation Pre-Feed weight: 3.16 kg (was 2.778 (6# 2oz) at clinic today so mom here for help with feedings; baby reweighed to verfiy weight) Post-Feed weight: 3.228 kg (just beyond birthweight after feeding)) Milk Transferred (mL): 68 Position: Cradle Attachment/latch-on achieved: Easily Suck pattern: Suck burst and normal rest Swallow: Audible, consistent Behavior following feed: Alert, content Pre-Nursing Left Nipple: Within Normal Limits Pre-Nursing Right Nipple: Within Normal Limits Post-Nursing Left Nipple: Within Normal Limits Post-Nursing Right Nipple: Within Normal Limits Assessments/Interventions Assessments/Interventions: Baby had an appointment with Dr. Cook today for a circumcision; due to weight loss concerns (down 13% from birthweight) the procedure was cancelled. It was recommended to mom for her to pump and bottle some feedings to be sure baby is getting what he needs, f/u at the Center on 12/18 for a weight check and reschedule his circumcision for next week. observation: izabela latched easily to mom's LEFT breast, had a wide, deep latch that mom stated was comfortable nursed strongly for 9 minutes; had some sleepy moments when mom would arouse him and then he would resume suckling well Milk transferred: 52 ml izabela then latched to mom's RIGHT breast, again quite easily nursed for 7 minutes and then unlatched Milk transferred 16 ml Total milk transferred 70ml Due to concern with weights, scale again zeroed out and baby reweighed; weight unchanged so confident in accuracy Mom had been told to pump and bottle and then be seen here in Center in 4 days due to clinic being closed for holiday; mom will speak with Dr. Cook's office to see if that visit can be skipped given the info from this visit Education provided: Early feeding cues to maximize timing of latching, Asymmetric latch technique for wide/deep latch to increase milk, Transfer for baby and increase comfort for mom, Supply/demand nature of milk supply (discussed adding in 1 pump/day if mom desires to build a milk suppl to prep for return to work at 6 weeks), Alternative feeding methods (SNS, cup, finger feeding, bottling), Pumping for milk management and Milk collection, storage Feeding Plan: continue feeding baby every 2-3 hours; ok to go 3 hours at night after circumcision appt next week, if baby continuing to do well can go 4 hr stretch at night Time Spent Time spent with patient (min): 60 Meds Home Medications and Allergies Home Medications ?Medication ?Instructions ?Recorded ?Confirmed ?Type vitamins no.148-iron 27 1 cap PO DAILY #90 ca ps 05/15/24 12/05/24 Rx mg-folate 1 mg-dha 205 mg capsule cetirizine 10 mg tablet 10 mg PO DAILY PRN allergy 1 09/03/23 12/05/24 Rx symptoms #7 tabs famotidine 20 mg tablet (Pepcid) 20 mg PO QDAY 4 12/05/24 History cholecalciferol (vitamin D3) 50 100 mcg (2 x 50 mcg (2 ,000 unit)) 12/07/24 Rx mcg (2,000 unit) capsule (Vitamin PO DAILY #180 caps D3) docusate sodium 100 mg capsule 100 mg PO DAILY #60 cap s 12/07/24 Rx ibuprofen 600 mg tablet 600 mg PO Q6H PRN #60 tabs 0 12/07/24 Rx Allergies Allergy/AdvReac Type Severity Reaction Status Date / Time No Known Drug Allergies Allergy Verified 12/05/24 23:00
== END 2024-12-14 13:24 | disposition home or self-care (01) ==
LOC: OB LAC 13:25
PROVIDERS: PCP Family Medicine; Visit Provider Obstetrics & Gynecology
DX: Z39.1 Encounter for care and examination of lactating mother (principal)
CPT/HCPCS: G0463